=== PATIENT | female | born 1970 | race Caucasian/White ===

== ENCOUNTER 2018-12-06 10:27 | Emergency (ER) | payer MEDICARE ==
[~2018-12-06] VITALS: Ht 165.1 cm; Wt 95.0 kg
--- NOTE | 2018-12-06 10:43 | NUR ---
BIB [facility] FROM [facility] W MCHUGH AND L FACIAL NUBNESS AND SWELLING PT HAS HX CVA W L ARM NUMBNESS AO4 ON ARRIVAL BP HERE 192/125 4MS AND 4 ZOFRAN GIVEN ENROUTE
[2018-12-06] MEDS ORDERED: PROPARACAINE OPHTH 0.5%, 15ML ONE (10:58)
[2018-12-06] MEDS ORDERED: FLUORESCEIN OPHTHALMIC 1 MG STRIP ONE (10:58)
[2018-12-06] MEDS ORDERED: PROPARACAINE OPHTH 0.5%, 15ML EACHEYE ONE (11:00)
[2018-12-06] MEDS ORDERED: FLUORESCEIN OPHTHALMIC 1 MG STRIP EACHEYE ONE (11:00)
[2018-12-06] MEDS ORDERED: PLEASE ENTER ALLERGIES MC SCH (11:00)
--- NOTE | 2018-12-06 12:22 | NUR ---
BREAK RN: MEDICATED PER ORDERS, PT VERBALIZED NO NEEDS AT THIS TIME. CALL LIGHT IN PLACE
[2018-12-06] MEDS ORDERED: SODIUM CHLORIDE FLUSH 10ML SYR IVF ONE (13:00)
--- NOTE | 2018-12-06 13:19 | NUR ---
pt to mri at this time
[2018-12-06] MEDS ORDERED: GADOBUTROL 10 MMOL/10 ML PFS ONE (14:34)
--- NOTE | 2018-12-06 14:55 | NUR ---
RETURNED FROM MRI
--- NOTE | 2018-12-06 15:03 | NUR ---
Avni HENDERSON, at bedside to discuss ED findings and POC.
[2018-12-06 15:35] VITALS: BP 139/91
--- NOTE | 2018-12-06 15:37 | NUR ---
Patient/Caregiver given discharge instructions and they have confirmed that they understand the instructions. Patient ambulatory with steady gait.
== END 2018-12-06 15:39 | disposition home or self-care (01) ==
LOC: ED 13:12
DX: S39.012A Strain of muscle, fascia and tendon of lower back, initial encounter (principal); H00.015 Hordeolum externum left lower eyelid; M51.14 Intervertebral disc disorders with radiculopathy, thoracic region; M51.16 Intervertebral disc disorders with radiculopathy, lumbar region; I10 Essential (primary) hypertension; F17.210 Nicotine dependence, cigarettes, uncomplicated; Z86.73 Personal history of transient ischemic attack (TIA), and cerebral infarction without residual deficits; X58.XXXA Exposure to other specified factors, initial encounter; Y93.89 Activity, other specified; Y92.89 Other specified places as the place of occurrence of the external cause; Y99.8 Other external cause status
CPT/HCPCS: 70450; 72157; 72158; 99284; A9585

== ENCOUNTER → 2019-05-30 | Outpatient (CLI) | payer MEDICARE | END | disposition home or self-care (01) | LOC: RAD 10:08 | PROVIDERS: ATTEND Registered Nurse | DX: M41.84 Other forms of scoliosis, thoracic region (principal); M41.86 Other forms of scoliosis, lumbar region; M47.896 Other spondylosis, lumbar region | CPT/HCPCS: 72082; 72120 ==